=== PATIENT | male | born 1970 | race Caucasian/White ===

== ENCOUNTER 2017-08-01 08:51 | Outpatient (CLI) | payer BC ==
--- NOTE | 2017-08-05 11:27 | XRAY Report ---
DATE OF SERVICE: 08/01/2017 THREE VIEW RIGHT FOOT: 08/01/2017 CLINICAL INDICATION: History of cuboid fracture. FINDINGS: AP, lateral, oblique views of the right foot demonstrate no evidence of acute fracture. Av ulsion fragments are noted adjacent to the cuboid. Posterior calcaneal spurring is present, and mild osteoa rthritic changes are noted. IMPRESSION: Avulsion fragments adjacent to the cuboid. No evidence of acute fracture. TD: 08/01/2017 20:32
== END 2017-08-01 08:52 | disposition home or self-care (01) ==
LOC: DI.S 08:51
PROVIDERS: ATTEND Podiatrist
DX: S99.921D Unspecified injury of right foot, subsequent encounter (principal)

== ENCOUNTER 2018-01-16 09:06 | Outpatient (CLI) | payer BC ==
--- NOTE | 2018-01-16 11:18 | XRAY Report ---
Procedure Date: 01/16/2018 Accession Number: [id number] / [id number] Procedure: XRS - Hand 3 View RT CPT Code: FULL RESULT: EXAM: Hand 3 View RT DATE: 01/16/2018 9:17 AM CLINICAL HISTORY: INJURED R HAND COMPARISON: None. TECHNIQUE: 3 views. FINDINGS: Bones: Normal. No fractures or bone lesions. Joints: Normal. No subluxations. Soft Tissues: Normal. No soft tissue swelling. IMPRESSION: Normal hand radiography. [facility]
== END 2018-01-16 09:07 | disposition home or self-care (01) ==
LOC: DI.S 09:06
PROVIDERS: ATTEND Nurse Practitioner Family
DX: S69.91XA Unspecified injury of right wrist, hand and finger(s), initial encounter (principal)

== ENCOUNTER 2021-01-06 11:01 | Outpatient (CLI) | payer BC ==
--- NOTE | 2021-01-06 11:29 | XRAY Report ---
PROCEDURE: Finger(s) LT INDICATIONS: LEFT FINGER PAIN/4TH DIGIT TECHNIQUE: AP hand, 4 views of the fourth finger(s) acquired. COMPARISON: None. FINDINGS: Bones: No fractures or dislocations. No suspicious bony lesions. Soft tissues: No suspicious soft tissue calcifications. IMPRESSION: Mild degenerative osteophytic change at the inner phalangeal joints but no trauma or erosive arthriti s. Reviewed by: yDlan Clark MD on 01/06/2021 10:28 AM [facility] Approved by: Dylan Clark MD on 01/06/2021 10:28 AM [facility] Station ID: [id number]
== END 2021-01-06 11:02 | disposition home or self-care (01) ==
LOC: DI.S 11:01
PROVIDERS: ATTEND Physician Assistant Medical
DX: M19.042 Primary osteoarthritis, left hand (principal)

== ENCOUNTER 2022-02-21 11:10 | Outpatient (CLI) | payer OTHER ==
[2022-02-21 11:59] VITALS: BP 113/77
--- NOTE | 2022-02-21 11:59 | SLEEP CARE CONSULTATION ---
Information from patient questionnaire entered by Sanya Heck MA. I have reviewed and concur with the information entered by Sanya Heck MA. This document represents the service I personally performed and the decisions made by me, Paulette Ortiz ARNP. History of Present Illness Service Date and Time: 02/21/2022 1110 Reason for Visit: New patient (ONSET 08/04/2019, NO PRIOR, ) Chief Complaint: reports: Snoring, Observed pauses in breathing, Frequent awak enings at night Date of Onset: 1 PLUS YEAR Usual bedtime: 900 PM Time it takes to fall asleep: 30 MINUTES Snores at night: Yes Observed to quit breathing while asleep: Yes Sleeps alone due to snoring: Yes Number of times waking at night: 3 Reasons for waking at night: reports: Snoring, Gasping for air, Bathroom, Other (TO GET WATER FOR DRY MOUTH) Toss, Turn, or Twitch while sleeping: Yes Recalls having dreams: Yes Usually gets out of bed at: 0630 Feels refreshed in the morning: No Morning headache: No Sleepy or fatigued during the day: Yes Ever fallen asleep while driving: No Takes day naps: Yes (2-3 times a week) Dreams during day naps: Yes Prior sleep studies: No Additional HPI information: I had the pleasure of seeing KYLE TURK today regarding the possibility of him having a sleep disorder. His current complaints are snoring, observed pauses in breathing and frequent night awakenings. He states he has been a "loud, loud snorer for a long time". He sleeps separate from his due to his loud snoring because she cannot tolerate her ear plugs in her ears anymore. When he was staying with family, his sister did tell him that he had long pauses in breathing when sleeping. His father and sister have sleep apnea and both use CPAP machines. He states he does not wake up feeling rested. He drinks coffee in the morning to get himself going. He states he will take an afternoon nap about 2-3 times a week. He has woke up "trying to catch his breath" in the past and from snoring. He will wake up about 3 times a night on average. 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 Patient is and lives in [place]. Have you smoked in the past 12 months: Yes Cigarettes per day (20/pack): 40 Years of smokin Smoking Pack Years: 30.0 Alcohol use: Yes Alcohol amount and frequency: 2-3 X DAILY Caffeine use: Yes Caffeine amount and frequency: 4 X DAILY Family History Family history of sleep disordered breathing: Yes Family Hx Sleep Apnea: Mother: Snoring, Sleep apnea - Treated, Father: Snoring, Sleep apnea - Treated, Sibling: Snoring, Sleep apnea - Treated Allergies and Home Medications Drug allergies reviewed: Yes (compazine) Home medication list reviewed: Yes Allergy and home medication list: Medications: Atorvastatin Review of Systems Weight gain over past 5 years: 30 Cardiovascular: reports: high blood pressure (sometimes at dentists office) Neurological: denies: head trauma Psychiatric: reports: Attention Deficit Hyperactivity, anxiety, claustrophobia Ear/Nose/Throat: reports: dry mouth/throat, wisdom teeth removed. denies: injury to nose, tonsillectomy Musculoskeletal: reports: joint pain, back pain Immunologic: denies: allergies to food or environment Physical Exam Vital signs obtained and entered by: Isabell HECK CMA [facility] Blood Pressure: 113/77 (RESP 18, PULSE 69, RIGHT) Cuff size: wrist Heart Rate: 72 O2 Saturation: 98 (MASK) Height: 6 ft 2 in Weight: 259 lb (CLOTHES) Weight change since last visit: LOSE -PORTION AND CUTTING OUT ALCOHOL AND SMOKING Body Mass Index: 33.2 BMI Classification: Obese Neck circumference: 18 (INCHES) Mouth and throat: narrow oropharynx Soft palate: long Hard palate: normal Uvula: normal Uvula visualization: 25% Mallampati Class III Tongue: enlarged in size with teeth solis on lateral edges Tonsils: 1+ Neck: normal w/o lymphadenopathy or thyromegaly Heart: regular rate and rhythm Lungs: clear bilaterally Impression and Plan 1. Suspected Obstructive Sleep Apnea-Hypopnea Syndrome, as suggested by a history of loud and irregular snoring, observed cessation of breath while asleep, frequent awakening during the night, unrefreshed sleep and excessive daytime sleepiness. Narrow oropharynx and obesity are common predisposing factors for obstructive sleep apnea-hypopnea syndrome. I recommend proceeding to polysomnography to confirm the diagnosis and to assess severity. If the patient has significant sleep disordered breathing, a manual CPAP titration study will also be performed to find the optimal treatment pressure. I informed the patient of what the sleep studies involve and after some discussion, obtained agreement to proceed. The pathophysiology of obstructive sleep apnea-hypopnea syndrome was discussed with the patient and health risks of cardiovascular and cerebrovascular disease if not treated. Risks of drowsy driving discussed in detail and patient advised to avoid long distance driving and to sheeting puller at the first sign of drowsiness. Patient agreed to plan. * Schedule polysomnography * Avoid long distance driving or driving when feeling sleepy. * Avoid alcohol, sedative and muscle relaxant around bedtime. * Attempt to lose weight. * Review instructions provided by trained office staff on how to prepare for the sleep study. * Return for follow-up after sleep study completed. Counseling Topics: Weight loss health impact Visit Type: In Office Time Spent with Patient (minutes): 31 Provider Statement: I spent 100% of the Face to Face Visit with the patient with greater than 50% spent counseling the patient and coordination of care.
== END 2022-02-21 11:11 | disposition home or self-care (01) ==
LOC: SC 11:10
PROVIDERS: ATTEND Nurse Practitioner Family
DX: G47.10 Hypersomnia, unspecified (principal); G47.8 Other sleep disorders; R06.81 Apnea, not elsewhere classified; R06.83 Snoring; E66.9 Obesity, unspecified; Z68.33 Body mass index [BMI] 33.0-33.9, adult
CPT/HCPCS: 99203; 99212

== ENCOUNTER 2022-04-03 09:58 | Outpatient (CLI) | payer OTHER ==
--- NOTE | 2022-04-03 08:55 | SLEEP CARE CONSULTATION ---
Information from patient questionnaire entered by Sanya Christine MA. I have reviewed and concur with the information entered by Sanya Christine MA. This document represents the service I personally performed and the decisions made by , Paulette Ortiz ARNP. History of Present Illness Service Date and Time: 04/03/2022 0840 Initial [place] Sleepiness Scale score: 12 (02/20/2022) Current [place] Sleepiness Scale score: 10 Additional HPI information: KYLE TURK returns via video telehealth visit for follow up and results of the recently performed home sleep study. I explained the pathophysiology behind obstructive sleep apnea. We then spent quite a bit of time discussing different treatment options. For mild obstructive sleep apnea, surgery and oral appliance are alternatives to nasal CPAP therapy but in moderate or severe cases, nasal CPAP is the most effective and reliable treatment. Because apnea is primarily in supine position, then positional management therapy could be effective. Methods discussed such as positioning with pillows to prevent supine sleep. I reviewed the impact of weight changes on sleep apnea and strongly recommended losing weight. After some discussion, the patient opted to go with the nasal CPAP therapy. Nasal autoCPAP set at 5-20 cmH20 will be ordered with rationale explained. A manual titration study will be ordered if unable to find optimal pressure with office adjustments. I explained how CPAP machine works and what to expect when using the machine. Using CPAP every night in order to get used to it was emphasized. Patient advised to put CPAP mask on before getting into bed so as not to fall asleep without CPAP. To assist acclimation to CPAP use, it could also be used for a short time during day while reading or watching TV. The patient was instructed to call the CPAP supplier to discuss any mechanical problem that may occur. If the mask given is uncomfortable or is difficult to keep on through the night even with adjustment, contact the CPAP supplier as many will replace with another mask style if notified before 30 days. If snoring or perceives is not getting enough air or too much air from the machine, notify this office. Patient was cautioned about risks of drowsy driving until sleepiness symptoms resolve. Sleep Study - Results Type of Sleep Study: Home sleep study (F/U T, 03/20/2022 [facility]) Prior sleep studies: No Polysomnography/Home Sleep Study results: Physician Impression: The quality of the study is good. The length of the study is adequate (> 240 minutes). Please also see the tabulated and graphic data. 1. Obstructive Sleep Apnea-Hypopnea (ICD-10 G47.33), very severe, with an AHI of 61.2/hr and vinh SaO2 of 66%. During the study, the patient had 533 apneas (533 obstructive, 0 central, 0 mixed) and 35 hypopneas. The longest episode lasted 82.0 seconds. The respiratory events occurred independently of sleep stage and body position (supine AHI was 60.8 and non-supine, 61.60). 2. Hypoxemia (ICD-10 R09.02), moderate, with the lowest oxygen saturation of 66 % and 166.0 minutes with SaO2 under 90%. Baseline oxygen saturation was normal (Average oxygen saturation was 91%). Allergies and Home Medications Home medication list reviewed: Yes (no changes) Review of Systems Review of systems same as previous: Yes (no changes) Physical Exam Vital signs obtained and entered by: LEONEL SALINAS Height: 6 ft 2 in Weight: 257 lb (pt reported) Body Mass Index: 33.0 BMI Classification: Obese Impression and Plan 1. Obstructive Sleep Apnea-Hypopnea Syndrome, very severe, with lowest oxygen saturation of 66%. Obviously this is the cause of the patients symptoms of unrefreshed sleep, and excessive daytime sleepiness. Positive pressure therapy could benefit attention deficit. As mentioned above, the patient will be started on nasal autoCPAP therapy with pressure set at 5-20 cmH2O. Compliance guidelines also reviewed. A copy of compliance guidelines will be given for reference at check out. 2. Hypoxemia, moderate, with the lowest oxygen saturation of 66 % and 166.0 minutes with SaO2 under 90%. His baseline oxygen saturation was normal with an average oxygen saturation of 91%. * Nasal auto CPAP therapy, pressure at 5-20 cm H2O. * Attempt to lose weight. * Avoid alcohol consumption near bedtime. * Avoid supine sleep until using CPAP. * The patient is again cautioned about driving until sleepiness completely resolves. * Return one month after CPAP obtained. I will assess response to therapy and compliance at that time. Counseling Topics: Weight loss health impact Visit Type: Telehealth Video Video Type: Doximity Patient Location: Home Location of Provider: Office Patient agrees and consents to this telehealth visit type: Yes Patient agrees to have their insurance billed: Yes Time Spent with Patient (minutes): 20 Provider Statement: I spent 100% of the Telehealth Video Call with the patient with greater than 50% spent counseling the patient and coordination of care.
== END 2022-04-03 09:59 | disposition home or self-care (01) ==
LOC: SC 09:58
PROVIDERS: ATTEND Nurse Practitioner Family
DX: G47.33 Obstructive sleep apnea (adult) (pediatric) (principal); R09.02 Hypoxemia; E66.9 Obesity, unspecified; Z68.33 Body mass index [BMI] 33.0-33.9, adult

== ENCOUNTER 2022-07-01 12:56 | Outpatient (CLI) | payer OTHER ==
--- NOTE | 2022-07-01 15:19 | XRAY Report ---
PROCEDURE: Chest 2 View X-Ray INDICATIONS: FORMER HEAVY SMOKER TECHNIQUE: 2 views of the chest were acquired. COMPARISON: None. FINDINGS: Surgical changes and devices: None. Lungs and pleura: No pleural effusions or pneumothorax. A 1.5 cm nodule projects over the left lower lobe. No consolidation demonstrated. Mediastinum: Mediastinal contours are normal. Heart size is normal. Bones and chest wall: No suspicious bony abnormalities. Soft tissues appear unremarkable. IMPRESSION: 1. A 1.5 cm nodular density projects over the left lower lobe, likely a calcified granuloma however a pulmonary nodule is difficult to fully exclude. CT of the chest could be obtained for further evalua tion if indicated. 2. No acute cardiopulmonary abnormality. Reviewed by: Jj Tanner MD on 07/01/2022 2:18 PM [facility] Approved by: Jj Tanner MD on 07/01/2022 2:18 PM [facility] Station ID: [id number]
== END 2022-07-01 12:57 | disposition home or self-care (01) ==
LOC: DI.S 12:56
PROVIDERS: ATTEND Nurse Practitioner Family
DX: Z12.2 Encounter for screening for malignant neoplasm of respiratory organs (principal); R91.8 Other nonspecific abnormal finding of lung field; Z87.891 Personal history of nicotine dependence

== ENCOUNTER 2022-07-31 12:37 | Outpatient (CLI) | payer OTHER ==
--- NOTE | 2022-07-31 16:31 | CT Report ---
PROCEDURE: Low Dose Lung Cancer Screen INDICATIONS: FORMER SMOKER TECHNIQUE: Noncontrast low-dose axial images were acquired from the pulmonary apices to the posterior costophren ic angles. Multiplanar MIP reformats were then reconstructed. For radiation dose reduction, the follo wing was used: automated exposure control, adjustment of mA and/or kV according to patient size. COMPARISON: Chest x-ray 06/23/2022 FINDINGS: Image quality: Excellent. Lungs and pleura: 1.4 cm round completely calcified pulmonary nodule present in the posterior latera l left lower lobe, , corresponds to chest x-ray finding. There are a few punctate calcifications just lateral and inferior. 4 mm subpleural right apical calcification, . No other pulmonary nodu les, calcified or noncalcified. No suspicious parenchymal opacities or consolidations. No pleural eff usion or pleural calcification. Punctate left apical subpleural calcification. Mediastinum: Heart size is normal. No pericardial effusion. Trace coronary artery calcification. Th ere are coarsely calcified and centrally calcified left hilar and mediastinal lymph nodes. No bulky m ediastinal adenopathy by size criteria. Thoracic aorta and central pulmonary arteries are normal in size. Esophagus is normal in caliber. No hiatal hernia. Bones and chest wall: No suspicious bony lesions. No vertebral body compression fractures. No axil estrella or supraclavicular adenopathy by size criteria. The thyroid gland is not well seen due to artif act. Abdomen: Visualized upper abdomen solid organs and bowel loops appear normal in the absence of contr ast. IMPRESSION: 1. Occasional calcified bilateral lung nodules, the largest measuring 1.5 cm accounting for the chest x-ray finding. These are benign and consistent with healed granulomatous disease. 2. Lung RADS category 1, recommend annual low-dose screening. Reviewed by: Isabella Jones MD on 07/31/2022 4:30 PM PST Approved by: Isabella Jones MD on 07/31/2022 4:30 PM PST Station ID: [id number]
== END 2022-07-31 12:38 | disposition home or self-care (01) ==
LOC: DI 12:37
PROVIDERS: ATTEND Nurse Practitioner Family
DX: Z12.2 Encounter for screening for malignant neoplasm of respiratory organs (principal); R91.8 Other nonspecific abnormal finding of lung field; Z87.891 Personal history of nicotine dependence